=== PATIENT | female | born 1975 | race Caucasian/White ===

== ENCOUNTER → 2017-05-04 | Outpatient (CLI) | payer OTHER ==
[2015-09-13 09:39] VITALS: BP 147/61
[~2017-05-04] MED LIST: ADVAIR 100/28 DISKU1 IH; GOOD NEIGHBOR500 M2 PO; JUNEL FE 1.5/301 TAB PO; LEVAQUIN 5500 MG/TA1 PO; LIPITOR 10MG10 MG PO; ONDANSETRON HYDR4 M1 PO; PROAIR RESPICL90 MCG INH; SYNTHROID0.075 MG PO; TYLENOL 500MG500 MG PO; ZOLOFT100 MG PO
== END ==
LOC: MAMMO 15:55 → RAD 16:00 → MAMMO 16:00
DX: Z12.31 Encounter for screening mammogram for malignant neoplasm of breast (principal)

== ENCOUNTER 2018-08-17 19:43 | Emergency (ER) | payer OTHER ==
[~2018-08-17] VITALS: Ht 160 cm; Wt 93.2 kg
[2018-08-17 20:37] VITALS: BP 145/93
== END 2018-08-17 20:37 | disposition home or self-care (01) ==
LOC: ED 19:43
DX: S61.210A Laceration without foreign body of right index finger without damage to nail, initial encounter (principal); F41.9 Anxiety disorder, unspecified; Z23 Encounter for immunization; W20.8XXA Other cause of strike by thrown, projected or falling object, initial encounter; Y92.009 Unspecified place in unspecified non-institutional (private) residence as the place of occurrence of the external cause
CPT/HCPCS: 90715

== ENCOUNTER → 2019-01-30 | Outpatient (CLI) | payer OTHER | LOC: MAMMO 08:00 | DX: Z12.31 Encounter for screening mammogram for malignant neoplasm of breast (principal) ==

== ENCOUNTER → 2020-07-17 | Outpatient (CLI) | payer OTHER | LOC: MAMMO 10:33 | DX: Z12.31 Encounter for screening mammogram for malignant neoplasm of breast (principal) ==

== ENCOUNTER → 2020-09-30 | Outpatient (CLI) | payer OTHER | LOC: RAD 15:06 | DX: M25.562 Pain in left knee (principal); R07.89 Other chest pain ==

== ENCOUNTER → 2021-11-17 | Outpatient (CLI) | payer OTHER | LOC: RAD 17:17 | DX: M25.561 Pain in right knee (principal) ==

== ENCOUNTER 2023-12-31 19:49 | Emergency (ER) | payer OTHER ==
[~2023-12-31] VITALS: Ht 160 cm; Wt 102.3 kg
[2023-12-31] MEDS ORDERED: MELOXICAM15 MG PO (20:08)
[2023-12-31] MEDS ORDERED: POTASSIUM CHLO10 ME6 PO (20:08)
[2023-12-31] MEDS ORDERED: HYDROCHLOROTH12.5 M2 PO (20:08)
[2023-12-31] MEDS ORDERED: CARVEDILOL12.5 MG PO (20:08)
[2023-12-31] MEDS ORDERED: ATORVASTATIN CA10 MG PO (20:08)
[2023-12-31 20:42] LABS: HEMOGLOBIN 12.8 g/dL (12.5-16.0); MEAN PLATELET VOLUME 9.3 fl (7.4-10.4); RED BLOOD COUNT 4.23 M/mm3 (4.10-5.30); RED CELL DISTRIBUTION WIDTH 12.6 % (11.5-14.5); WHITE BLOOD COUNT 8.5 K/mm3 (4.8-10.8)
[2023-12-31 20:52] LABS: CALCIUM 9.3 mg/dL (8.3-10.5)
[2023-12-31 20:58] LABS: MAGNESIUM 1.79 mg/dL (1.60-2.60)
[2023-12-31 21:32] VITALS: BP 112/68
== END 2023-12-31 21:34 | disposition home or self-care (01) ==
LOC: ED 19:49
PROVIDERS: Family Medicine
DX: R00.2 Palpitations (principal)